=== PATIENT | male | born 1990 | race Caucasian/White ===

== ENCOUNTER 2017-07-31 06:35 | Day surgery (SDC) | payer OTHER ==
[~2017-07-31 06:35] MED LIST: CEFAZOLIN 1 GM/50 ML (PMX) 50 ML IVPB; SOD CHLORIDE 0.9% 1,000 ML IV
[2017-07-31] MEDS ORDERED: PROPOFOL 200 MG INJ (07:00)
[2017-07-31] MEDS ORDERED: LIDOCAINE 2% (SDV) 5 ML INJ (07:00)
[2017-07-31] MEDS ORDERED: FENTAnyl 50 MCG/ML VIAL (09:59)
[2017-07-31] MEDS ORDERED: MIDAZOLAM 1 MG/ML 2 ML INJ (09:59)
[2017-07-31] MEDS ORDERED: FENTAnyl 50 MCG/ML VIAL IV ×3 (10:00)
[2017-07-31] MEDS ORDERED: DIPHENHYDRAMINE 50 MG INJ IV (10:00)
[2017-07-31] MEDS ORDERED: OXYCODONE/ACETAMINOPHEN (5/325) TAB PO ×2 (10:00)
[2017-07-31] MEDS ORDERED: hydrALAzine 20 MG INJ IV (10:00)
[2017-07-31] MEDS ORDERED: MEPERIDINE 25 MG INJ IV (10:00)
[2017-07-31] MEDS ORDERED: HYDROmorphONE 1 MG/5 ML IV SYRINGE IV ×3 (10:00)
[2017-07-31] MEDS ORDERED: LABETALOL HCL 20MG INJ IV (10:00)
[2017-07-31] MEDS ORDERED: EPHEDrine SULFATE 50 MG/5 ML SYG IV (10:00)
[2017-07-31] MEDS ORDERED: MIDAZOLAM 1 MG/ML 2 ML INJ IV (10:00)
[2017-07-31] MEDS ORDERED: KETOROLAC 30 MG INJ IV (10:00)
[2017-07-31] MEDS ORDERED: ONDANSETRON 4 MG INJ IV (10:00)
[2017-07-31] MEDS: LIDOCAINE 2% (MDV) 20 ML INJ (10:14)
[2017-07-31] MEDS: BUPIVACAINE 0.5% (SDV) 30 ML INJ (10:14)
[2017-07-31] MEDS ORDERED: CEFAZOLIN 1 GM INJ (10:26)
[2017-07-31] MEDS ORDERED: HYDROCODONE/APAP (5/325) TAB PO (10:30)
== END 2017-07-31 11:58 | disposition home or self-care (01) ==
LOC: SDS 06:35
DX: D36.12 Benign neoplasm of peripheral nerves and autonomic nervous system, upper limb, including shoulder (principal); E66.9 Obesity, unspecified; Z68.41 Body mass index [BMI] 40.0-44.9, adult
CPT/HCPCS: 14040; 88307